=== PATIENT | female | born 1950 | race African-American/Black ===

== ENCOUNTER 2020-01-07 07:16 | Inpatient (IN) | payer MEDICARE, OTHER ==
[~2020-01-07] VITALS: Ht 167.6 cm; Wt 67.6 kg
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
[2020-01-07 07:47] LABS: BASOPHILS # (AUTO) 0.1 /CMM (0.0-0.2); BASOPHILS % (AUTO) 0.7 % (0.0-2.0); EOSINOPHILS % (AUTO) 1.8 % (0.0-6.0); HEMATOCRIT 46 % (33-45); HEMOGLOBIN 15.8 g/dL (11.5-14.8); MEAN CORPUSCULAR HGB CONC 34 g/dl (31.0-36.0); MEAN CORPUSCULAR VOLUME 93 fL (82-100); MONOCYTES # (AUTO) 0.7 /CMM (0.1-1.30); MONOCYTES % (AUTO) 7.7 % (2.0-12.0); NEUTROPHILS # (AUTO) 4.9 /CMM (1.8-8.9); NEUTROPHILS % (AUTO) 55.8 % (43.0-81.0); PLATELET COUNT (AUTO) 277 /CMM (150-450); RED BLOOD CELL COUNT(AUTO) 4.99 MIL/uL (4.0-5.2); WHITE BLOOD COUNT (AUTO) 8.8 K/uL (4.3-11.0)
[2020-01-07 07:53] LABS: CALCIUM, SERUM 9.1 mg/dL (8.5-10.1); CARBON DIOXIDE 31 mmol/L (21-32); CHLORIDE 102 mmol/L (98-107); CREATININE 1.1 mg/dL (0.6-1.3); GLUCOSE 101 mg/dL (74-106); POTASSIUM 3.7 mmol/L (3.5-5.1); SODIUM SERUM 138 mmol/L (136-145); UREA NITROGEN, BLOOD 10 mg/dL (7-18)
[2020-01-07 07:58] LABS: ALANINE AMINOTRANSFERASE 28 U/L (12-78); ALBUMIN 4.1 g/dL (3.4-5.0); ALKALINE PHOSPHATASE 67 U/L (46-116); ASPARTATE AMINOTRANSFERASE 21 U/L (15-37); BILIRUBIN,DIRECT 0.2 mg/dL (0.0-0.2); BILIRUBIN,TOTAL 0.7 mg/dL (0.2-1.0); TOTAL PROTEIN, SERUM 8.5 g/dL (6.4-8.2)
[2020-01-07 08:00] LABS: ACETAMINOPHEN 0 ug/ml (10-30); SALICYLATE 2.4 mg/dL (2.8-20.0)
[2020-01-07 08:01] LABS: ALCOHOL, BLOOD < 3 mg/dL (0-0)
[2020-01-07 08:04] LABS: APPEARANCE,URINE Clear (CLEAR); BILIRUBIN,URINE Negative (NEGATIVE); BLOOD, URINE Small Ery/uL (NEGATIVE); COLOR,URINE Yellow (YELLOW); KETONES,URINE Negative (NEGATIVE); LEUKOCYTE ESTERASE ,URINE Small (NEGATIVE); NITRITE, URINE Negative (NEGATIVE); PROTEIN,URINE Negative (NEGATIVE); UGLUCOSE Negative (NEGATIVE); UROBILINOGEN,URINE 0.2 EU/dL (0.2)
[2020-01-07 08:16] LABS: BACTERIA,URINE Moderate /HPF (None Seen); SQUAMOUS EPITHELIAL CELL,UR Few /HPF (None Seen)
--- NOTE | 2020-01-07 09:10 | NUR ---
ADRIAN VERMA [phone]
--- NOTE | 2020-01-07 09:53 | NUR ---
CALLED LUCI, SHE IS STILL AT [facility] AND WILL BE HERE AFTERWARDS.
--- NOTE | 2020-01-07 10:58 | NUR ---
GOT BED 213-B
--- NOTE | 2020-01-07 11:00 | NUR ---
patient placed on 5150 hold by Alma Velazquez RN, MSN for being gravely diabled
--- NOTE | 2020-01-07 11:36 | NUR ---
report given to Mini ROSALES of [employer]
--- NOTE | 2020-01-07 12:05 | NUR ---
per admitting dept, awaiting approval from medical group
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
[2020-01-07] MEDS ORDERED: TEMAZEPAM 7.5 MG CAPSULE PO PRN (13:00)
[2020-01-07] MEDS ORDERED: BLOOD SUGAR DIAGNOSTIC 1 EACH STRIP IN ONE (13:00)
[2020-01-07] MEDS ORDERED: MAG HYDROX/AL HYDROX/SIMETH 30 ML UDC PO PRN (13:00)
[2020-01-07] MEDS ORDERED: MAGNESIUM HYDROXIDE 30 ML UDC PO PRN (13:00)
[2020-01-07] MEDS ORDERED: LORAZEPAM 0.5 MG TABLET PO PRN (13:00)
[2020-01-07] MEDS ORDERED: ACETAMINOPHEN 325 MG TABLET PO PRN (13:00)
--- NOTE | 2020-01-07 13:16 | NUR ---
RN NOTE: BLOOD SUGAR 123
--- NOTE | 2020-01-07 13:28 | NUR ---
Dr. Sánchez made aware of the admission and with order and Aakash Patel made aware of the admission.
[2020-01-07 14:37] VITALS: BP 119/95
[2020-01-07 16:00] VITALS: BP 119/55
[2020-01-07] MEDS: CEPHALEXIN MONOHYDRATE 250 MG CAPSULE PO SCH ×2 (17:23→23:40)
[2020-01-07 20:00] VITALS: BP 129/89
[2020-01-08] MEDS: CEPHALEXIN MONOHYDRATE 250 MG CAPSULE PO SCH ×4 (05:25→23:32)
[2020-01-08 07:22] LABS: CHOLESTEROL 174 mg/dL (<200); HDL CHOLESTEROL 81 mg/dL (40-60); LDL 91 mg/dL (0-99); TRIGLYCERIDES 44 mg/dL (30-150)
[2020-01-08 07:26] LABS: ALBUMIN 3.3 g/dL (3.4-5.0); BILIRUBIN,TOTAL 0.5 mg/dL (0.2-1.0); CALCIUM, SERUM 8.5 mg/dL (8.5-10.1); CREATININE 0.8 mg/dL (0.6-1.3); POTASSIUM 4.1 mmol/L (3.5-5.1); TOTAL PROTEIN, SERUM 7.1 g/dL (6.4-8.2)
[2020-01-08 08:00] VITALS: BP 139/64
[2020-01-08] MEDS: risperiDONE-M 0.5 MG TAB.RAPDIS PO SCH ×2 (13:21→17:21)
[2020-01-08 16:00] VITALS: BP 128/74
[2020-01-08 20:54] VITALS: BP 129/86
[2020-01-09] MEDS: CEPHALEXIN MONOHYDRATE 250 MG CAPSULE PO SCH ×4 (05:31→23:38)
[2020-01-09 08:00] VITALS: BP 142/74
[2020-01-09] MEDS: risperiDONE-M 0.5 MG TAB.RAPDIS PO SCH ×2 (08:24→17:01)
--- NOTE | 2020-01-09 09:11 | NUR ---
UR NOTE: MIGUEL received a call from [facility] case supervisor Lala ( ex:[phone] ) stating pt is out of network and requested clinicals be faxed along with a treatment plan. MIGUEL faxed clinicals and will notify of request for treatment plan and length of stay. Addendum: 01/09/20 at 0917 by RUDY RIVERA Pts outside psychiatrist is Dr. Jc Anaya, Address: [id number] [place] [address] [address], [place] [address]
--- NOTE | 2020-01-09 12:09 | NUR ---
INITIAL DISCHARGE PLAN: Pt is homeless and wishes to be discharged to her car that is parked in the hospital parking lot and states she will go to [facility]. MIGUEL will help form a safe and proper discharge in collaboration with .
--- NOTE | 2020-01-09 14:43 | NUR ---
Individual Counseling: This SW met with pt. at bedside to facilitate therapeutic milieu regarding support systems. Patient presented laying in her bed and refused to meet with SW stating she had already spoken to other SW. SW prompted conversation with pt. regarding who she feels supported by. Pt. declined to engage in conversation. Patient will be invited to participate in future counseling session.
[2020-01-09 16:00] VITALS: BP 132/66
[2020-01-09 20:19] VITALS: BP 143/70
[2020-01-10] MEDS: CEPHALEXIN MONOHYDRATE 250 MG CAPSULE PO SCH ×3 (06:01→17:51)
[2020-01-10 08:00] VITALS: BP 138/90
[2020-01-10] MEDS: risperiDONE-M 0.5 MG TAB.RAPDIS PO SCH ×2 (08:48→17:51)
--- NOTE | 2020-01-10 14:12 | NUR ---
INDIVIDUAL MEETING: SW met with pt to discuss her discharge plan to [facility] the [facility]. 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 Pt stated that she would figure it out and wanted to be discharged to her car that is parked in the hospital parking lot. Pt appeared with labile mood and congruent affect.
[2020-01-10 16:00] VITALS: BP 154/77
[2020-01-10 20:53] VITALS: BP 159/75
[2020-01-11] MEDS: CEPHALEXIN MONOHYDRATE 250 MG CAPSULE PO SCH ×3 (00:13→12:41)
[2020-01-11 08:00] VITALS: BP 146/90
[2020-01-11] MEDS: risperiDONE-M 0.5 MG TAB.RAPDIS PO SCH (08:42)
--- NOTE | 2020-01-11 09:04 | NUR ---
RN-CO: DR ROBLES ordered to discontinue hold and discharge the patient via her own private vehicle to [facility] at [address] [place], [place] [id number]. [phone]. She has no family to notify. Dr Patel Medically cleared her for discharge. Patient is alert and oriented x4, ambulatory, able to make decisions of her own. Denied suicidal and homicidal ideation.Denied auditory and visual hallucinations. No acute distress noted and denied pain and discomforts. All discharge papers were explained to patient and she signed and verbalized understanding.All belongings and prescriptions will be given to the patient.
--- NOTE | 2020-01-11 10:25 | NUR ---
DISCHARGE NOTE: Pt will be discharged at 11:00am via her own private vehicle to [facility] Address: [address] [place] [address] . Pt has no family to notify. Pt states her vehicle is parked in the hospital parking lot. Pts mood is euthymic with congruent affect. Pt denied visual/auditory hallucinations and denied suicidal/homicidal ideation. Pt was given homeless resources and was encouraged to present to [facility] [address] [place] [address] . for psychiatrist follow up. Pt was also given a referral to [facility] Address: [address] [place] [address] . Pt is alert and oriented x4 and is ambulatory. Pt signed homeless waiver and SW placed in pts chart.
--- NOTE | 2020-01-11 13:00 | NUR ---
RN-CO: ALL VALUABLES, RX, AND DISCHARGE PAPERS WAS GIVEN TO THE PATIENT. SHE WAS ESCORTED BY 2 STAFF IN THE HOSPITAL LOBBY.
== END 2020-01-11 13:07 | disposition home or self-care (01) | DRG 885 ==
LOC: ER 07:23 → GPS 12:43
PROVIDERS: ADMIT Psychiatry & Neurology Psychosomatic Medicine; ATTEND Nurse Practitioner Acute Care
DX: F22 Delusional disorders (principal); N39.0 Urinary tract infection, site not specified; F29 Unspecified psychosis not due to a substance or known physiological condition; F41.9 Anxiety disorder, unspecified
CPT/HCPCS: 36415; 80048-TC; 80053-TC; 80061-TC; 80076-TC; 80305; 81000-TC; 82962-TC; 85025-TC; 87081-TC; 87086-TC; G0480